=== PATIENT | female | born 1950 | race Two or more races ===

== ENCOUNTER 2016-11-29 17:01 | Emergency (ER) | payer SELFPAY ==
[~2016-11-29 17:01] MED LIST: ADVIL200 MG PO; BENADRYL25 MG PO; CARAFATE1 GM/10 M1 PO; COMPAZINE10 M PO; EPITOL200 MG PO; MULTIVITAMIN1 TAB; NORCO 5/325 TAB1 TAB PO; OMEPRAZOLE40 M2 PO; PERCOCET 5/3251 TAB PO
[2016-11-29] MEDS ORDERED: TEGRETOL200 M1 PO (18:28)
[2017-02-03] MEDS ORDERED: NORCO 5-325 TA1 EACH PO (01:09)
[2017-02-04] MEDS ORDERED: MOBIC7.5 M2 PO (15:05)
[2017-02-04] MEDS ORDERED: NORCO 5-325 TA1 EACH PO (15:07)
[2017-02-04] MEDS ORDERED: OXYCONTIN10 M2 PO (15:08)
== END 2016-11-29 18:39 ==
LOC: EDMED 17:01
DX: G50.0 Trigeminal neuralgia (principal)
CPT/HCPCS: J2270